=== PATIENT | male | born 1975 | race Caucasian/White ===

== ENCOUNTER 2020-05-06 21:01 | Observation (INO) | payer OTHER ==
[~2020-05-06] VITALS: Ht 188 cm; Wt 145.1 kg
[2020-05-06 21:44] LABS: HEMOGLOBIN 16.3 gm/dl (14.0-17.5); RED BLOOD COUNT 5.58 M/UL (4.20-5.50); WHITE BLOOD COUNT 9.7 K/UL (4.5-11.0)
[2020-05-06 22:04] LABS: BUN/CREATININE RATIO 17 (0-10)
[2020-05-06] MEDS ORDERED: OZEMPIC0.25 MG/0. SQ (23:20)
[2020-05-06] MEDS ORDERED: BASAGLAR K100 UNIT/1 SQ (23:21)
[2020-05-06] MEDS ORDERED: NEURONTIN 100100 MG PO (23:21)
[2020-05-06] MEDS ORDERED: PAXIL20 MG PO (23:22)
[2020-05-06] MEDS ORDERED: NORVASC10 MG PO (23:22)
[2020-05-06] MEDS ORDERED: CRESTOR20 MG PO (23:23)
[2020-05-06] MEDS ORDERED: CYCLOBENZAPRINE10 MG PO (23:24)
[2020-05-06] MEDS ORDERED: GLUCOPHAGE1000 MG PO (23:24)
[2020-05-06] MEDS ORDERED: PRINIVIL20 MG PO (23:24)
[2020-05-07 05:11] LABS: HEMOGLOBIN 16.2 gm/dl (14.0-17.5); RED BLOOD COUNT 5.47 M/UL (4.20-5.50); WHITE BLOOD COUNT 7.9 K/UL (4.5-11.0)
[2020-05-07 05:33] LABS: BUN/CREATININE RATIO 15 (0-10)
[2020-05-07] MEDS ORDERED: LOPRESSOR 25 MG25 MG PO (17:56)
== END 2020-05-07 18:25 | disposition home or self-care (01) ==
LOC: ER1 21:01 → CDU 05-07 00:11 → MED SURG 4 05-07 15:00
PROVIDERS: Internal Medicine; Physician Assistant; ADMIT Internal Medicine
PROC: 4A023N7 Measurement of Cardiac Sampling and Pressure, Left Heart, Percutaneous Approach (ICD-10-PCS; principal; 2020-05-06)
PROC: B2111ZZ Fluoroscopy of Multiple Coronary Arteries using Low Osmolar Contrast (ICD-10-PCS; 2020-05-06)
DX: R07.89 Other chest pain (principal); I25.10 Atherosclerotic heart disease of native coronary artery without angina pectoris; I10 Essential (primary) hypertension; E78.5 Hyperlipidemia, unspecified; G47.33 Obstructive sleep apnea (adult) (pediatric); E11.40 Type 2 diabetes mellitus with diabetic neuropathy, unspecified; E11.65 Type 2 diabetes mellitus with hyperglycemia; F17.290 Nicotine dependence, other tobacco product, uncomplicated; F17.210 Nicotine dependence, cigarettes, uncomplicated; F41.9 Anxiety disorder, unspecified; F32.9 Major depressive disorder, single episode, unspecified; I87.8 Other specified disorders of veins; D64.89 Other specified anemias; E66.01 Morbid (severe) obesity due to excess calories; Z68.41 Body mass index [BMI] 40.0-44.9, adult; Z20.822 Contact with and (suspected) exposure to COVID-19; Z79.4 Long term (current) use of insulin; Z79.899 Other long term (current) drug therapy; Z88.4 Allergy status to anesthetic agent
CPT/HCPCS: ECHO; 71045; 80048; 80053; 80061; 82550; 82553; 83036; 83874; 83880; 84439; 84443; 84484; 84550; 85025; 85610; 86140; 93005; 93306; 99152; 99153; 99285; C1769; C1894; G0008; G0378; J1644; J1650; J2250; J3010; Q9963; Q9967; U0002